=== PATIENT | male | born 1980 | race Caucasian/White ===

== ENCOUNTER 2019-07-12 21:30 | Emergency (ER) | payer OTHER ==
[2019-07-12] MEDS ORDERED: Ondansetron 4 MG/2 ML SDV IVPUSH ONE (22:22)
[2019-07-12] MEDS ORDERED: Ketorolac 30 MG/ML SDV IVPUSH ONE (22:22)
[2019-07-12] MEDS ORDERED: Acetaminophen/oxyCODONE 325-5 MG Tab PO ONE (23:28)
--- NOTE | 2019-07-12 23:31 | EDM.PDOC ---
ED HPI GENERAL MEDICAL PROBLEM - General Chief Complaint: Flank Pain Stated Complaint: kidney pains Time Seen by Provider: 07/12/19 23:18 Source of Information: Reports: Patient, RN Notes Reviewed History Limitations: Reports: No Limitations - History of Present Illness INITIAL COMMENTS - FREE TEXT/NARRATIVE: Patient is a 38-year-old male who presents to the ED for the evaluation of some right-sided flank pain. Patient states this was of sudden onset at around 3 PM this afternoon. He notes he does have a history of kidney stones and this does feel quite similar to her kidney stones in the past. He notes his urine is a little bit dark in color but does not notice any obvious blood in his urine. He is not having any dysuria, but he is having some frequency issues. He did not take any sort of pain medications prior to arrival to the ER. He is not having any fevers or chills, nausea/vomiting/diarrhea or any upper back pain. Right Flank Pain Score (Numeric/FACES): 7 - Related Data Allergies Allergy/AdvReac Type Severity Reaction Status Date / Time No Known Allergies Allergy Verified 07/12/19 21:48 Home Meds: Home Meds Acetaminophen/oxyCODONE [Percocet 325-5 MG] 1 each PO Q6H PRN #10 tab 07/12/19 [ Rx] Past Medical History Genitourinary History: Reports: Renal Calculus Social & Family History - Tobacco Use Smoking Status *Q: Current Every Day Smoker Years of Tobacco use: 20 Packs/Tins Daily: 0.5 - Caffeine Use Caffeine Use: Reports: Coffee - Recreational Drug Use Recreational Drug Use: Yes Recreational Drug Type: Reports: Marijuana/Hashish ED ROS GENERAL - Review of Systems Review Of Systems: Comprehensive ROS is negative, except as noted in HPI. Constitutional: Denies: Fever, Chills Respiratory: Denies: Shortness of Breath Cardiovascular: Denies: Chest Pain GI/Abdominal: Denies: Abdominal Pain, Constipation, Diarrhea, Nausea, Vomiting : Reports: Flank Pain (R flank pain), Frequency. Denies: Dysuria, Hematuria Musculoskeletal: Denies: Back Pain ED EXAM, RENAL/ - Physical Exam Exam: See Below Exam Limited By: No Limitations General Appearance: Alert, WD/WN, No Apparent Distress Respiratory/Chest: No Respiratory Distress, Lungs Clear, Normal Breath Sounds, No Accessory Muscle Use, Chest Non-Tender Cardiovascular: Normal Peripheral Pulses, Regular Rate, Rhythm, No Murmur GI/Abdominal: Normal Bowel Sounds, Soft, Non-Tender, No Distention, No Mass Back Exam: Normal Inspection. No: CVA Tenderness (L), CVA Tenderness (R) Extremities: Normal Inspection, Normal Capillary Refill Neurological: Alert, Oriented, Normal Cognition, No Motor/Sensory Deficits Psychiatric: Normal Affect, Normal Mood Skin Exam: Warm, Dry, Intact, Normal Color, No Rash Course - Vital Signs Last Recorded V/S: Last Vital Signs Temp 96.9 F 07/12/19 21:46 Pulse 65 07/12/19 21:46 Resp 24 H 07/12/19 21:46 BP 160/94 H 07/12/19 21:46 Pulse Ox 100 07/12/19 21:46 - Orders/Labs/Meds Orders: Active Orders 24 hr Category Date Time Status CULTURE URINE [RM] Routine Lab 07/12/19 23:23 Ordered Labs: Laboratory Tests 07/12/19 Range/Units 21:55 Urine Color [place] H (Yellow) Urine Appearance Cloudy H (Clear) Urine pH 8.5 H (5.0-8.0) Ur Specific [place] 1.020 (1.005-1.030) Urine Protein 2+ H (Negative) Urine Glucose (UA) Negative (Negative) Urine Ketones 3+ H (Negative) Urine Occult Blood 3+ H (Negative) Urine Nitrite Negative (Negative) Urine Bilirubin 1+ H (Negative) Urine Urobilinogen 1.0 (0.2-1.0) Ur Leukocyte Esterase Negative (Negative) Urine RBC Too numerous to cnt H (0-5) /hpf Urine WBC Not seen (0-5) /hpf Ur Squamous Epith Cells Not seen (0-5) /hpf Urine Bacteria Rare (FEW) /hpf Urine Mucus Few (FEW) /hpf Meds: Medications Discontinued Medications Generic Name Dose Route Start Last Admin Trade Name Freq PRN Reason Stop Dose Admin Ketorolac Tromethamine 30 mg 07/12/19 22:22 07/12/19 22:40 Toradol IVPUSH 07/12/19 22:23 30 mg ONETIME ONE Administration Ondansetron HCl 4 mg 07/12/19 22:22 07/12/19 22:40 Zofran IVPUSH 07/12/19 22:23 4 mg ONETIME ONE Administration - Re-Assessments/Exams Free Text/Narrative Re-Assessment/Exam: 07/12/19 23:27 Patient presents to the ED for evaluation of right-sided flank pain. Patient's analysis was obtained at time of triage, and demonstrates gross hematuria would be consistent with a kidney stone at this time. Patient would not like to have a CT done at tonight's visit as he does not have insurance and cannot afford this. He states that the pain is very similar to the kidney stones he has had in the past, and he states that the Toradol given at triage also helped the pain. At this time not going forward with a CT is fine with me, I told him that if he is still having pain or difficulty urinating, a few days down the road that he should present back for reevaluation and a CT. He is understanding of this. He will be sent home with a strainer to make sure that he passes the stone. Departure - Departure Time of Disposition: 23:31 Disposition: Home, Self-Care 01 Condition: Fair Clinical Impression: Kidney stone - Discharge Information *PRESCRIPTION DRUG MONITORING PROGRAM REVIEWED*: Yes *COPY OF PRESCRIPTION DRUG MONITORING REPORT IN PATIENT YVETTE: No Instructions: Dietary Guidelines to Help Prevent Kidney Stones, Kidney Stones, [id number] Referrals: PCP,None [Primary Care Provider] - Additional Instructions: You were evaluated in the ER today for your R flank pain. Your urinalysis did demonstrate some blood in urine, which is suggestive of a kidney stone at this time. A CT was not done at this ER visit, as you refused this testing at this time. You have been given a strainer, please use every time you use the bathroom to make sure that the kidney stone has passed. Recommend that you increase your oral fluid intake to try to help the stone pass. You have been given a few tablets of pain medication, please take as prescribed. These medications are highly addictive, please take as few as you need to. These medications also may cause constipation, please take a stool softener like MiraLAX while taking these medications. If your pain is not much better in a few days time or you do not think you have passed the stone by the end of this week, you should return to the ER for a CT for further evaluation of the stone. Please return to the ED if your symptoms change or worsen. Sepsis Event Note - Evaluation Sepsis Screening Result: No Definite Risk - Focused Exam Vital Signs: Vital Signs Temp Pulse Resp BP Pulse Ox 07/12/19 21:46 96.9 F 65 24 H 160/94 H 100 Date Exam was Performed: 07/12/19 Time Exam was Performed: 23:24 - My Orders Last 24 Hours: My Active Orders 07/12/19 23:23 CULTURE URINE [RM] Routine - Assessment/Plan Last 24 Hours: My Active Orders 07/12/19 23:23 CULTURE URINE [RM] Routine
[2019-07-12] MEDS ORDERED: Ondansetron 4 MG Tab.DIS PO ONE (23:38)
== END 2019-07-12 23:50 | disposition home or self-care (01) ==
LOC: JD.ED 21:30
DX: N20.0 Calculus of kidney (principal); F17.210 Nicotine dependence, cigarettes, uncomplicated; Z87.442 Personal history of urinary calculi
CPT/HCPCS: 81001; 87086; 96374; 96375; 99284; A9270; J1885; J2405; 99283

== ENCOUNTER 2023-01-08 15:00 | Emergency (ER) | payer SELFPAY ==
[2023-01-08] MEDS ORDERED: Sodium Chloride 0.9% 10 ML Syringe FLUSH PRN (15:11)
[2023-01-08] MEDS ORDERED: Ondansetron 4 MG/2 ML SDV IVPUSH ONE (15:11)
[2023-01-08] MEDS ORDERED: LORazepam 2 MG/ML SDV IVPUSH ONE ×2 (15:12→17:04)
[2023-01-08] MEDS ORDERED: Sodium Chloride 0.9% 1,000 ML IV SCH (15:15)
[2023-01-08 15:30] LABS: BASOPHILS ABSOLUTE AUTO 0.03 K/mm3 (0.01-0.08); BASOPHILS PERCENT AUTO 0.4 % (0.1-1.2); EOSINOPHILS ABSOLUTE AUTO 0.11 K/mm3 (0.04-0.54); EOSINOPHILS PERCENT AUTO 1.3 (0.8-7.0); HEMATOCRIT 43.3 % (40.1-51.0); HEMOGLOBIN 14.8 gm/dl (13.7-17.5); IMMATURE GRAN ABSOLUTE AUTO 0.06 K/mm3 (0.00-0.10); IMMATURE GRAN PERCENT AUTO 0.7 % (<=1.0); LYMPHOCYTES ABSOLUTE AUTO 1.33 K/mm3 (1.32-3.57); LYMPHOCYTES PERCENT AUTO 15.9 % (21.8-53.1); MEAN CORPUSCULAR HEMOGLOBIN 34.3 pg (25.7-32.2); MEAN CORPUSCULAR HGB CONC 34.2 g/dl (32.2-35.5); MEAN CORPUSCULAR VOLUME 100.2 fl (79.0-92.2); MONOCYTES ABSOLUTE AUTO 0.78 K/mm3 (0.30-0.82); MONOCYTES PERCENT AUTO 9.4 % (5.3-12.2); NEUTROPHILS ABSOLUTE AUTO 6.03 K/mm3 (1.78-5.38); NEUTROPHILS PERCENT AUTO 72.3 % (34.0-67.9); PLATELET COUNT,PLT 85 K/mm3 (163-337); RED BLOOD CELL COUNT 4.32 M/mm3 (4.63-6.08); WHITE BLOOD CELL COUNT,WBC 8.34 K/mm3 (4.23-9.07)
[2023-01-08 15:52] LABS: A/G RATIO 0.8 (1-2); ALBUMIN 3.7 g/dl (3.4-5.0); ANION GAP 31.4 (5-15); BILIRUBIN TOTAL 1.2 mg/dL (0.2-1.0); BUN/CREATININE RATIO 6.5 (14-18); CALCIUM 10.4 mg/dL (8.5-10.1); EST CRCL DRUG DOSING (CG) 47.03 mL/min; MAGNESIUM 1.5 mg/dL (1.8-2.4); POTASSIUM,K 3.4 mEq/L (3.5-5.1); PROTEIN TOTAL,TP 8.3 g/dl (6.4-8.2)
[2023-01-08 16:22] LABS: BARBITURATE SCREEN,URINE NEGATIVE (CUTOFF=200); BENZODIAZEPINES SCREEN,URINE NEGATIVE (CUTOFF=150); BUPRENORPHINE SCREEN,URINE NEGATIVE (CUTOFF=10); METHADONE SCREEN, URINE NEGATIVE (CUT0FF=200); METHAMPHETAMINES SCREEN, URINE NEGATIVE (CUTOFF=500); OXYCODONE SCREEN,URINE NEGATIVE (CUT0FF=100); PROPOXYPHENE SCREEN,URINE NEGATIVE (CUTOFF=300); THC SCREEN,URINE 20 NG/ML NEGATIVE (CUTOFF=50)
[2023-01-08 16:29] LABS: AMPHETAMINES SCREEN, URINE NEGATIVE (CUTOFF=500)
[2023-01-08] MEDS ORDERED: Sodium Chloride 0.9% 1,000 ML IV ONE (17:04)
== END 2023-01-08 19:20 | disposition home or self-care (01) ==
LOC: JD.ED 15:00
DX: R56.9 Unspecified convulsions (principal); K85.20 Alcohol induced acute pancreatitis without necrosis or infection; E86.0 Dehydration; F10.930 Alcohol use, unspecified with withdrawal, uncomplicated; N28.9 Disorder of kidney and ureter, unspecified; I10 Essential (primary) hypertension; F17.210 Nicotine dependence, cigarettes, uncomplicated; Z79.899 Other long term (current) drug therapy
CPT/HCPCS: 36415; 70450; 80053; 80306; 80307; 83690; 83735; 85025; 93005; 96361; 96374; 96375; 96376; 99285; J2060; J2405; J3490; J7030; 93010; 99284

== ENCOUNTER 2023-10-08 08:12 | Emergency (ER) | payer SELFPAY ==
[2023-10-08 09:18] LABS: BASOPHILS ABSOLUTE AUTO 0.1 K/mm3 (0.0-0.2); BASOPHILS PERCENT AUTO 0.6 % (0.0-1.0); EOSINOPHILS PERCENT AUTO 0.1 % (0.0-6.0); HEMATOCRIT 41.8 % (42.0-52.0); HEMOGLOBIN 14.9 gm/dl (14.0-18.0); IMMATURE GRAN ABSOLUTE AUTO 0.02 K/mm3 (0.00-0.05); IMMATURE GRAN PERCENT AUTO 0.2 % (0.0-0.4); LYMPHOCYTES ABSOLUTE AUTO 1.5 K/mm3 (1.0-4.8); MEAN CORPUSCULAR HEMOGLOBIN 31.8 pg (28.0-32.0); MEAN CORPUSCULAR HGB CONC 35.6 g/dl (32.0-36.0); MEAN CORPUSCULAR VOLUME 89.3 fl (83.0-99.0); MEAN PLATELET VOLUME 8.8 fl (9.4-12.4); MONOCYTES ABSOLUTE AUTO 0.6 K/mm3 (0.0-0.8); MONOCYTES PERCENT AUTO 7.1 % (0.0-8.0); NEUTROPHILS ABSOLUTE AUTO 6.9 K/mm3 (1.8-7.7); PLATELET COUNT,PLT 322 K/mm3 (150-400); RED BLOOD CELL COUNT 4.68 M/mm3 (4.52-5.90); WHITE BLOOD CELL COUNT,WBC 9.06 K/mm3 (3.9-11.3)
[2023-10-08 09:44] LABS: A/G RATIO 1.1 (1-2); ALBUMIN 3.9 g/dl (3.4-5.0); BILIRUBIN TOTAL 0.7 mg/dL (0.2-1.0); BUN/CREATININE RATIO 15.6 (14-18); CALCIUM 9.6 mg/dL (8.5-10.1); CREATININE 0.9 mg/dL (0.7-1.3); EST CRCL DRUG DOSING (CG) 104.5 mL/min; ETHANOL BLOOD MEDICAL 0.01 gm% (0.00); MAGNESIUM 1.5 mg/dL (1.8-2.4); PROTEIN TOTAL,TP 7.4 g/dl (6.4-8.2)
[2023-10-08] MEDS: Sodium Chloride 0.9% 10 ML Syringe FLUSH PRN (10:03)
[2023-10-08] MEDS: diphenhydrAMINE 50 MG/ML SDV IVPUSH ONE (10:04)
[2023-10-08] MEDS: Metoclopramide 10 MG/2 ML SDV IVPUSH ONE (10:04)
[2023-10-08] MEDS: Sodium Chloride 0.9% 1,000 ML IV STA (10:04)
[2023-10-08 10:24] LABS: APPEARANCE,URINE CLEAR (Clear); BILIRUBIN,URINE 1+ (Negative); COLOR,URINE YELLOW (Yellow); GLUCOSE,URINE NEGATIVE (Negative); KETONES,URINE 4+ (Negative); LEUKOCYTE ESTERASE,URINE NEGATIVE (Negative); NITRITE,URINE NEGATIVE (Negative); OCCULT BLOOD,URINE NEGATIVE (Negative); PH,URINE 6.5 (5.0-8.0); PROTEIN,URINE 2+ (Negative); UROBILINOGEN,URINE 0.2 (0.2-1.0)
[2023-10-08 10:39] LABS: BACTERIA,URINE NOT SEEN /hpf (FEW); HYALINE CASTS,URINE 0-5 /lpf (0-5); RBC,URINE NOT SEEN /hpf (0-5); SQUAMOUS EPITHELIAL CELLS,UR 0-5 /hpf (0-5); WBC,URINE 0-5 /hpf (0-5)
[2023-10-08 10:40] LABS: MUCUS,URINE MODERATE /hpf (FEW)
[2023-10-08 10:46] LABS: THC SCREEN,URINE 20 NG/ML PRESUMPTIVE POSITIVE (CUTOFF=50)
[2023-10-08 10:47] LABS: AMPHETAMINES SCREEN, URINE NEGATIVE (CUTOFF=500); BARBITURATE SCREEN,URINE NEGATIVE (CUTOFF=200); BENZODIAZEPINES SCREEN,URINE NEGATIVE (CUTOFF=150); BUPRENORPHINE SCREEN,URINE NEGATIVE (CUTOFF=10); METHADONE SCREEN, URINE NEGATIVE (CUT0FF=200); METHAMPHETAMINES SCREEN, URINE NEGATIVE (CUTOFF=500); OXYCODONE SCREEN,URINE NEGATIVE (CUT0FF=100)
[2023-10-08] MEDS: Magnesium Sulfate/Water 2 GM in Premix Bag 1 BAG IV ONE (10:50)
[2023-10-08] MEDS: Sodium Chloride 0.9% 1,000 ML IV ONE (10:51)
== END 2023-10-08 11:50 | disposition home or self-care (01) ==
LOC: JD.ED 08:12
DX: F10.130 Alcohol abuse with withdrawal, uncomplicated (principal); I10 Essential (primary) hypertension; J45.909 Unspecified asthma, uncomplicated
CPT/HCPCS: 36415; 80053; 80306; 80307; 81001; 83690; 83735; 85025; 96361; 96365; 96375; 99284; J1200; J2765; J3475; J3490; J7030; 99283

== ENCOUNTER 2024-06-09 20:30 | Inpatient (IN) | payer BC ==
[2024-06-09] MEDS: Sodium Chloride 0.9% 1,000 ML IV ONE (20:45)
[2024-06-09 21:10] LABS: BASOPHILS ABSOLUTE AUTO 0.1 K/mm3 (0.0-0.2); BASOPHILS PERCENT AUTO 1.5 % (0.0-1.0); EOSINOPHILS ABSOLUTE AUTO 0.1 K/mm3 (0.0-0.4); EOSINOPHILS PERCENT AUTO 0.8 % (0.0-6.0); HEMATOCRIT 44.7 % (42.0-52.0); HEMOGLOBIN 15.3 gm/dl (14.0-18.0); IMMATURE GRAN ABSOLUTE AUTO 0.01 K/mm3 (0.00-0.05); IMMATURE GRAN PERCENT AUTO 0.1 % (0.0-0.4); LYMPHOCYTES ABSOLUTE AUTO 2.8 K/mm3 (1.0-4.8); LYMPHOCYTES PERCENT AUTO 39.3 % (24.0-44.0); MEAN CORPUSCULAR HEMOGLOBIN 32.7 pg (28.0-32.0); MEAN CORPUSCULAR HGB CONC 34.2 g/dl (32.0-36.0); MEAN CORPUSCULAR VOLUME 95.5 fl (83.0-99.0); MEAN PLATELET VOLUME 9.3 fl (9.4-12.4); MONOCYTES ABSOLUTE AUTO 0.5 K/mm3 (0.0-0.8); MONOCYTES PERCENT AUTO 6.8 % (0.0-8.0); NEUTROPHILS ABSOLUTE AUTO 3.7 K/mm3 (1.8-7.7); NEUTROPHILS PERCENT AUTO 51.5 % (41.0-71.0); PLATELET COUNT,PLT 276 K/mm3 (150-400); RED BLOOD CELL COUNT 4.68 M/mm3 (4.52-5.90); WHITE BLOOD CELL COUNT,WBC 7.18 K/mm3 (3.9-11.3)
[2024-06-09] MEDS: Iopamidol 612 MG/ML 100 ML Bottle IVPUSH ONE (21:23)
[2024-06-09 21:35] LABS: LACTIC ACID 5.4 mmol/L (0.4-2.0)
[2024-06-09 21:39] LABS: A/G RATIO 1.1 (1-2); ALANINE AMINOTRANSFERASE,ALT 70 U/L (16-63); ALBUMIN 4.1 g/dl (3.4-5.0); ALKALINE PHOSPHATASE 90 U/L (46-116); ANION GAP 21.1 (5-15); ASPARTATE AMNIOTRANSFERASE,AST 64 U/L (15-37); BILIRUBIN TOTAL 0.2 mg/dL (0.2-1.0); BLOOD UREA NITROGEN,BUN 8 mg/dL (7-18); BUN/CREATININE RATIO 8.9 (14-18); CALCIUM 8.5 mg/dL (8.5-10.1); CARBON DIOXIDE,CO2 24 mEq/L (21-32); CHLORIDE,CL 104 mEq/L (98-107); CREATININE 0.9 mg/dL (0.7-1.3); ESTIMATED GFR 109 mL/min (>60); GLUCOSE RANDOM 123 mg/dL (70-99); LIPASE 59 U/L (16-77); POTASSIUM,K 3.1 mEq/L (3.5-5.1); PROTEIN TOTAL,TP 7.9 g/dl (6.4-8.2); SODIUM,NA 146 mEq/L (136-145); TROPONIN I HIGH SENSITIVITY 6 pg/mL (<=76)
[2024-06-09] MEDS: Lactated Ringers 1,000 ML IV ONE ×2 (21:45)
[2024-06-09 23:00] LABS: APPEARANCE,URINE CLEAR (Clear); BILIRUBIN,URINE NEGATIVE (Negative); COLOR,URINE YELLOW (Yellow); GLUCOSE,URINE NEGATIVE (Negative); KETONES,URINE NEGATIVE (Negative); LEUKOCYTE ESTERASE,URINE NEGATIVE (Negative); NITRITE,URINE NEGATIVE (Negative); OCCULT BLOOD,URINE TRACE-LYSED (Negative); PROTEIN,URINE NEGATIVE (Negative); UROBILINOGEN,URINE 0.2 (0.2-1.0)
[2024-06-09] MEDS ORDERED: Thiamine 100 MG in Sodium Chloride 0.9% 100 ML IV ONE (23:03)
[2024-06-09] MEDS: Magnesium Sulfate/Water Premix 2 GM in Premix Bag 1 BAG IV ONE (23:16)
[2024-06-09] MEDS: Thiamine 200 MG/2 ML MDV IVPUSH ONE (23:16)
[2024-06-09] MEDS: Folic Acid 50 MG/10 ML MDV SUBCUT ONE (23:19)
[2024-06-09] MEDS: Haloperidol Lactate 5 MG/ML SDV IVPUSH ONE (23:24)
[2024-06-09] MEDS: diphenhydrAMINE 50 MG/ML SDV IVPUSH ONE (23:25)
[2024-06-09 23:27] LABS: BACTERIA,URINE OCCASIONAL /hpf (FEW); MUCUS,URINE FEW /hpf (FEW); RBC,URINE 0-5 /hpf (0-5); SQUAMOUS EPITHELIAL CELLS,UR 0-5 /hpf (0-5); WBC,URINE 0-5 /hpf (0-5)
[2024-06-10] MEDS: Sodium Chloride 0.9% 10 ML Syringe FLUSH PRN (08:23)
[2024-06-10] MEDS: Enoxaparin 40 MG/0.4 ML Syringe SUBCUT SCH (08:51)
[2024-06-10 09:46] LABS: BASOPHILS ABSOLUTE AUTO 0.1 K/mm3 (0.0-0.2); BASOPHILS PERCENT AUTO 0.7 % (0.0-1.0); EOSINOPHILS ABSOLUTE AUTO 0.1 K/mm3 (0.0-0.4); HEMATOCRIT 38.8 % (42.0-52.0); HEMOGLOBIN 12.9 gm/dl (14.0-18.0); IMMATURE GRAN ABSOLUTE AUTO 0.03 K/mm3 (0.00-0.05); IMMATURE GRAN PERCENT AUTO 0.4 % (0.0-0.4); LYMPHOCYTES ABSOLUTE AUTO 2.4 K/mm3 (1.0-4.8); LYMPHOCYTES PERCENT AUTO 29.5 % (24.0-44.0); MEAN CORPUSCULAR HEMOGLOBIN 32.4 pg (28.0-32.0); MEAN CORPUSCULAR HGB CONC 33.2 g/dl (32.0-36.0); MEAN CORPUSCULAR VOLUME 97.5 fl (83.0-99.0); MEAN PLATELET VOLUME 9.4 fl (9.4-12.4); MONOCYTES ABSOLUTE AUTO 0.7 K/mm3 (0.0-0.8); MONOCYTES PERCENT AUTO 7.9 % (0.0-8.0); NEUTROPHILS PERCENT AUTO 60.5 % (41.0-71.0); PLATELET COUNT,PLT 193 K/mm3 (150-400); RED BLOOD CELL COUNT 3.98 M/mm3 (4.52-5.90); WHITE BLOOD CELL COUNT,WBC 8.21 K/mm3 (3.9-11.3)
[2024-06-10 10:28] LABS: A/G RATIO 1.1 (1-2); ALBUMIN 3.2 g/dl (3.4-5.0); BILIRUBIN TOTAL 0.4 mg/dL (0.2-1.0); C-REACTIVE PROTEIN 0.11 mg/dL (<0.30); CALCIUM 7.9 mg/dL (8.5-10.1); CREATININE 0.7 mg/dL (0.7-1.3); EST CRCL DRUG DOSING (CG) 141.94 mL/min; MAGNESIUM 2.4 mg/dL (1.8-2.4); POTASSIUM,K 4.1 mEq/L (3.5-5.1); PROTEIN TOTAL,TP 6.2 g/dl (6.4-8.2)
[2024-06-10 11:15] LABS: ANION GAP 19.1 (5-15)
[2024-06-10 11:18] LABS: FOLIC ACID 6.2 ng/mL (8.6-58.9)
[2024-06-10] MEDS: Nicotine 14 MG/24 Hr Patch TRDERM SCH (11:56)
[2024-06-10] MEDS ORDERED: LORazepam 2 MG/ML SDV IVPUSH PRN ×3 (12:42→16:59)
[2024-06-10] MEDS ORDERED: LORazepam 1 MG Tab PO PRN (16:36)
[2024-06-10] MEDS ORDERED: Naloxone 0.4 MG/ML SDV IVPUSH PRN (16:45)
[2024-06-10] MEDS ORDERED: Sennosides/Docusate Sodium 50-8.6 MG Tab PO PRN (16:45)
[2024-06-10] MEDS ORDERED: Ibuprofen 400 MG Tab PO PRN (16:45)
[2024-06-10] MEDS ORDERED: Ondansetron 4 MG/2 ML SDV IV PRN (16:45)
[2024-06-10] MEDS ORDERED: Ketorolac 30 MG/ML SDV IVPUSH PRN (16:45)
[2024-06-10] MEDS ORDERED: Morphine 2 MG/ML SYRINGE IVPUSH PRN (16:45)
[2024-06-10] MEDS: Dextrose 5%-0.45% NaCl 1,000 ML IV SCH (16:48)
[2024-06-10] MEDS: Folic Acid 1 MG Tab PO SCH (21:11)
[2024-06-10] MEDS: Famotidine 20 MG/2 ML SDV IVPUSH SCH (21:11)
[2024-06-10] MEDS: Thiamine 100 MG Tab PO SCH (21:11)
[2024-06-11 04:58] LABS: INR 0.96; PROTHROMBIN TIME 10.2 SECONDS (9.7-12.0)
[2024-06-11 05:09] LABS: A/G RATIO 0.9 (1-2); ALBUMIN 2.6 g/dl (3.4-5.0); ANION GAP 11.2 (5-15); BILIRUBIN TOTAL 0.8 mg/dL (0.2-1.0); BUN/CREATININE RATIO 11.3 (14-18); CREATININE 0.8 mg/dL (0.7-1.3); EST CRCL DRUG DOSING (CG) 124.2 mL/min; MAGNESIUM 1.9 mg/dL (1.8-2.4); PHOSPHORUS 3.5 mg/dL (2.6-4.7); POTASSIUM,K 3.2 mEq/L (3.5-5.1); PROTEIN TOTAL,TP 5.6 g/dl (6.4-8.2)
[2024-06-11] MEDS ORDERED: Magnesium Sulfate (4.06 MEQ/ML) 5 GM/10 ML SDV IV ONE (08:25)
[2024-06-11] MEDS: Potassium Chloride 20 MEQ Tab.ER PO ONE ×2 (08:41→11:39)
[2024-06-11] MEDS: Nicotine Polacrilex 2 MG Gum CHEW PRN (19:14)
[2024-06-11] MEDS ORDERED: hydrALAZINE 20 MG/ML SDV IVPUSH PRN (19:25)
[2024-06-11] MEDS ORDERED: Labetalol 100 MG/20 ML MDV IVPUSH PRN (19:25)
[2024-06-11] MEDS: Melatonin 3 MG Tab PO PRN (20:06)
[2024-06-12] MEDS: Potassium Chloride 20 MEQ Tab.ER PO ONE (10:14)
[2024-06-13 10:47] LABS: VITAMIN B1, WHOLE BLOOD 254 nmol/L (70-180)
== END 2024-06-12 10:27 | disposition home or self-care (01) | DRG 775 ==
LOC: JD.ED 20:30 → JD.ICU 06-10 07:01
PROVIDERS: ADMIT Student in an Organized Health Care Education/Training Program; ATTEND Student in an Organized Health Care Education/Training Program
DX: F10.131 Alcohol abuse with withdrawal delirium (principal); G93.40 Encephalopathy, unspecified; E87.20 Acidosis, unspecified; E87.0 Hyperosmolality and hypernatremia; N13.30 Unspecified hydronephrosis; I10 Essential (primary) hypertension; J45.909 Unspecified asthma, uncomplicated; M43.8X4 Other specified deforming dorsopathies, thoracic region; R74.01 Elevation of levels of liver transaminase levels; R33.9 Retention of urine, unspecified; N32.89 Other specified disorders of bladder; E53.8 Deficiency of other specified B group vitamins; F17.210 Nicotine dependence, cigarettes, uncomplicated; E86.0 Dehydration; W10.9XXA Fall (on) (from) unspecified stairs and steps, initial encounter; Y90.0 Blood alcohol level of less than 20 mg/100 ml; Z79.899 Other long term (current) drug therapy; Z87.440 Personal history of urinary (tract) infections
CPT/HCPCS: 36415; 70450; 70450-26; 71260; 71260-26; 72125; 72125-26; 74177; 74177-26; 80053; 80307; 81001; 82607; 82746; 83605; 83690; 83735; 84100; 84425; 84484; 85025; 85610; 86140; 93005; 93010; 96361; 96365; 96366; 96367; 96375; 99223; 99233; 99238; 99285-25; 99291; A9270-GY; J1200; J1630; J1650; J3411; J3475; J7030; J7120; J7799; Q9967

== ENCOUNTER 2024-10-11 00:01 | Emergency (ER) | payer MEDICAID ==
[2024-10-11] MEDS: Sodium Chloride 0.9% 2,000 ML IV ONE (00:13)
[2024-10-11] MEDS: Thiamine 200 MG/2 ML MDV IVPUSH ONE (00:14)
[2024-10-11] MEDS: Ondansetron 4 MG/2 ML SDV IVPUSH ONE (00:14)
[2024-10-11] MEDS: Folic Acid 50 MG/10 ML MDV IV STA (00:19)
[2024-10-11] MEDS: Folic Acid 1 MG Tab PO ONE (00:20)
[2024-10-11] MEDS: Folic Acid 1 MG Tab ONE (00:22)
[2024-10-11 00:46] LABS: INR 0.97; PROTHROMBIN TIME 10.3 SECONDS (9.7-12.0)
[2024-10-11 00:53] LABS: A/G RATIO 0.9 (1-2); ALBUMIN 3.3 g/dl (3.4-5.0); ANION GAP 18.2 (5-15); BILIRUBIN TOTAL 0.4 mg/dL (0.2-1.0); CALCIUM 8.7 mg/dL (8.5-10.1); EST CRCL DRUG DOSING (CG) 105.62 mL/min; ETHANOL BLOOD MEDICAL 0.41 gm% (0.00); POTASSIUM,K 3.2 mEq/L (3.5-5.1); PROTEIN TOTAL,TP 7.2 g/dl (6.4-8.2)
[2024-10-11 01:08] LABS: BASOPHILS ABSOLUTE AUTO 0.1 K/mm3 (0.0-0.2); BASOPHILS PERCENT AUTO 0.9 % (0.0-1.0); EOSINOPHILS ABSOLUTE AUTO 0.1 K/mm3 (0.0-0.4); EOSINOPHILS PERCENT AUTO 1.1 % (0.0-6.0); HEMATOCRIT 42.6 % (42.0-52.0); HEMOGLOBIN 14.9 gm/dl (14.0-18.0); IMMATURE GRAN ABSOLUTE AUTO 0.02 K/mm3 (0.00-0.05); IMMATURE GRAN PERCENT AUTO 0.2 % (0.0-0.4); LYMPHOCYTES ABSOLUTE AUTO 3.5 K/mm3 (1.0-4.8); LYMPHOCYTES PERCENT AUTO 37.2 % (24.0-44.0); MEAN CORPUSCULAR HEMOGLOBIN 31.8 pg (28.0-32.0); MEAN CORPUSCULAR VOLUME 90.8 fl (83.0-99.0); MEAN PLATELET VOLUME 9.2 fl (9.4-12.4); MONOCYTES PERCENT AUTO 10.8 % (0.0-8.0); NEUTROPHILS ABSOLUTE AUTO 4.6 K/mm3 (1.8-7.7); NEUTROPHILS PERCENT AUTO 49.8 % (41.0-71.0); PLATELET COUNT,PLT 268 K/mm3 (150-400); RED BLOOD CELL COUNT 4.69 M/mm3 (4.52-5.90)
[2024-10-11] MEDS: Potassium Chloride 10 MEQ in Premix Bag 1 BAG IV ONE (02:11)
[2024-10-11] MEDS: Potassium Chloride 20 MEQ Tab.ER PO ONE (02:12)
[2024-10-11] MEDS: Nicotine 21 MG/24 Hr Patch TRDERM ONE (03:46)
[2024-10-11 04:05] LABS: BASOPHILS ABSOLUTE AUTO 0.1 K/mm3 (0.0-0.2); BASOPHILS PERCENT AUTO 0.9 % (0.0-1.0); EOSINOPHILS ABSOLUTE AUTO 0.1 K/mm3 (0.0-0.4); EOSINOPHILS PERCENT AUTO 1.7 % (0.0-6.0); HEMATOCRIT 38.4 % (42.0-52.0); IMMATURE GRAN ABSOLUTE AUTO 0.02 K/mm3 (0.00-0.05); IMMATURE GRAN PERCENT AUTO 0.3 % (0.0-0.4); MEAN CORPUSCULAR HEMOGLOBIN 32.2 pg (28.0-32.0); MEAN CORPUSCULAR HGB CONC 34.9 g/dl (32.0-36.0); MEAN CORPUSCULAR VOLUME 92.3 fl (83.0-99.0); MEAN PLATELET VOLUME 8.8 fl (9.4-12.4); MONOCYTES ABSOLUTE AUTO 0.7 K/mm3 (0.0-0.8); MONOCYTES PERCENT AUTO 9.4 % (0.0-8.0); NEUTROPHILS ABSOLUTE AUTO 3.6 K/mm3 (1.8-7.7); NEUTROPHILS PERCENT AUTO 47.7 % (41.0-71.0); PLATELET COUNT,PLT 210 K/mm3 (150-400); RED BLOOD CELL COUNT 4.16 M/mm3 (4.52-5.90); WHITE BLOOD CELL COUNT,WBC 7.55 K/mm3 (3.9-11.3)
[2024-10-11 04:10] LABS: HEMOGLOBIN 13.4 gm/dl (14.0-18.0)
[2024-10-11 04:29] LABS: A/G RATIO 0.8 (1-2); ALBUMIN 2.8 g/dl (3.4-5.0); ANION GAP 16.3 (5-15); BILIRUBIN TOTAL 0.4 mg/dL (0.2-1.0); BUN/CREATININE RATIO 7.5 (14-18); CALCIUM 7.8 mg/dL (8.5-10.1); CREATININE 0.8 mg/dL (0.7-1.3); EST CRCL DRUG DOSING (CG) 132.03 mL/min; POTASSIUM,K 3.3 mEq/L (3.5-5.1); PROTEIN TOTAL,TP 6.2 g/dl (6.4-8.2)
[2024-10-11 04:31] LABS: ETHANOL BLOOD MEDICAL 0.28 gm% (0.00); MAGNESIUM 1.7 mg/dL (1.8-2.4)
== END 2024-10-11 05:25 | disposition home or self-care (01) ==
LOC: JD.ED 00:01
DX: F10.129 Alcohol abuse with intoxication, unspecified (principal); T42.4X1A Poisoning by benzodiazepines, accidental (unintentional), initial encounter; I10 Essential (primary) hypertension; J45.909 Unspecified asthma, uncomplicated; F43.20 Adjustment disorder, unspecified; Z79.899 Other long term (current) drug therapy
CPT/HCPCS: 36415; 80053; 80143; 80179; 80307; 82550; 83690; 83735; 85025; 85610; 96361; 96365; 96375; 99284; A9270; J2405; J3411; J3480; J7030; 93010; 99285